=== PATIENT | female | born 1945 | race Caucasian/White ===

== ENCOUNTER → 2016-12-13 | Outpatient (CLI) | payer OTHER, MEDICARE ==
--- NOTE | 2016-12-13 14:30 | MR ---
MRI of the Left Shoulder History: Posterior left shoulder pain. Please evaluate rhomboids. Technique: Axial proton density, oblique coronal and sagittal T1 and T2 sequences were acquired. Supp lemental additional MR sequences of the posterior left shoulder at the level of the rhomboids also pe rformed. Findings: Supraspinatus tendon is mildly abnormal, with mild interstitial tendinosis and fraying distally, with out tear. Infraspinatus is intact. Subscapularis and teres minor are intact. Long head biceps tendon is normally positioned and intact, with mild tendinosis through the rotator interval. Mild focal chondral thinning involves the posteroinferior glenoid rim at the 7:30 position, with joshua cent labral fraying, without displaced tear. The remainder of the glenoid labrum and articular cartil age of the glenohumeral joint appears intact. The acromioclavicular joint is mildly degenerative with edema and bony hyperostosis. Large [id number] imaging over the posterior chest at the site of pain is normal. Specifically, no areas of abnormal intramuscular signal intensity identified within the rhomboid musculature or the ad jacent soft tissues. Visualized osseous structures appear normal including posterior left ribs. The l eft scapula demonstrates normal marrow signal characteristics. Incidental note is made of degenerativ e arthropathy of moderate severity within the left sternoclavicular joint. Impression: 1. Distal supraspinatus tendinosis 2. Mild focal chondral thinning involving the posteroinferior glenoid at the 7:30 position, with joshua cent labral fraying. 3. Left acromioclavicular degenerative arthropathy. 4. Left sternoclavicular degenerative arthropathy. 5. No evidence of mass or other abnormality in the region of the posterior left chest at the rhomboid s.
== END ==
LOC: FIMAGING 11:38
PROVIDERS: ATTEND Orthopaedic Surgery Hand Surgery
DX: M75.82 Other shoulder lesions, left shoulder (principal); M12.812 Other specific arthropathies, not elsewhere classified, left shoulder

== ENCOUNTER → 2017-05-31 | Outpatient (CLI) | payer OTHER, MEDICARE | LOC: FIMAGING 13:44 | PROVIDERS: ATTEND Internal Medicine Hematology & Oncology | DX: Z12.31 Encounter for screening mammogram for malignant neoplasm of breast (principal); Z85.3 Personal history of malignant neoplasm of breast; Z92.3 Personal history of irradiation | CPT/HCPCS: G0202 ==